=== PATIENT | male | born 1955 | race Caucasian/White ===

== ENCOUNTER 2018-09-27 15:12 | Emergency (ER) | payer OTHER ==
[2018-09-27] MEDS ORDERED: Metoclopramide HCl 10 MG/2 ML VIAL ONE (15:55)
[2018-09-27] MEDS ORDERED: diphenhydrAMINE 50 MG/ML VIAL ONE (15:57)
[2018-09-27] MEDS ORDERED: Acetaminophen 500 MG TAB ONE (15:57)
[2018-09-27 16:24] LABS: Bilirubin Negative (Negative); Blood, Urine Moderate (Negative); Clarity CLEAR (Clear); Glucose, Urine (Dipstick) Negative (Negative); Leukocyte Negative (Negative); Nitrite Negative (Negative); Protein, Urine (Dipstick) Negative (Neg-Trace); Specific Gravity, Urine 1.009 (1.002-1.036); pH, Urine 7.5 (5.0-9.0)
[2018-09-27 16:32] LABS: Bacteria/HPF None Seen HPF (None Seen); Hyaline Casts/LPF 0-3 HYALINE CAST LPF (0-3 Hyaline); RBC/HPF 21-50 HPF (0-3); Squamous Epithelial 0-3 HPF (0-3); WBC/HPF None Seen HPF (0-3)
--- NOTE | 2018-09-27 16:45 | CT ---
CT Brain WO Con: 09/27/2018 3:56 PM CLINICAL HISTORY: Lightheadedness and headache. IMAGING TECHNIQUE: Multiple CT images were obtained of the brain without IV contrast. COMPARISON: None. FINDINGS: Infarct: No acute infarct evident. Hemorrhage: None. Hydrocephalus: None.. Basal cisterns: Normal. Cerebral parenchyma: Normal. Midline shift: None. Cerebellum: Normal. Brainstem: Normal. OTHER: Calvarium: Normal. Visualized Paranasal sinuses: There is mild mucosal thickening within the ethmoid air cells.. Extracranial soft tissues:Normal IMPRESSION: 1. No acute intracranial abnormality. 2. Mild paranasal sinus disease.
[2018-09-27] MEDS ORDERED: Lidocaine 1% PF 5 ML VIAL ONE ×2 (18:21→18:27)
[2018-09-27] MEDS ORDERED: cefTRIAXone\\ROCEPHIN 2 GM VIAL ONE (18:21)
[2018-09-27] MEDS ORDERED: Azithromycin 250 MG TAB ONE (18:21)
--- NOTE | 2018-10-02 14:23 | EKG ---
Test Reason : REPEAT Blood Pressure : / mmHG Vent. Rate : 079 BPM Atrial Rate : 079 BPM P-R Int : 168 ms QRS Dur : 096 ms QT Int : 398 ms P-R-T Axes : 066 057 056 degrees QTc Int : 456 ms Normal sinus rhythm Possible Left atrial enlargement Borderline ECG Confirmed by JORGE A CALLAHAN ([id number]), fan mail editor ARNOL PENA ([id number] on 10/02/2018 2:22:57 PM Referred By: Confirmed By:JROGE A CALLAHAN
--- NOTE | 2018-10-02 14:23 | EKG ---
Test Reason : Blood Pressure : / mmHG Vent. Rate : 091 BPM Atrial Rate : 091 BPM P-R Int : 170 ms QRS Dur : 096 ms QT Int : 368 ms P-R-T Axes : 073 067 055 degrees QTc Int : 452 ms Normal sinus rhythm Normal ECG Confirmed by JORGE A CALLAHAN ([id number]), movie editor ARNOL PENA ([id number] on 10/02/2018 2:22:53 PM Referred By: Confirmed By:JORGE A CALLAHAN
== END 2018-09-27 19:39 | disposition home or self-care (01) ==
LOC: ERS 15:12
DX: I48.91 Unspecified atrial fibrillation (principal); J20.9 Acute bronchitis, unspecified; I25.2 Old myocardial infarction; Z87.442 Personal history of urinary calculi
CPT/HCPCS: 70450; 81003; 81015; 87086; 87804; 93005; 96365; 96372; 96375; J0696; J1200; J2001; J2765